=== PATIENT | male | born 1980 | race Caucasian/White ===

== ENCOUNTER 2018-11-13 10:03 | Day surgery (SDC) | payer OTHER ==
[2018-11-13] MEDS: LACTATED RINGER'S 1,000 ML IV (11:24)
[2018-11-13] MEDS ORDERED: MIDAZOLAM 1 MG/ML 2 ML INJ (12:52)
[2018-11-13] MEDS ORDERED: PROPOFOL 20 ML ×2 (12:56→13:47)
[2018-11-13] MEDS ORDERED: LIDOCAINE 2% (SDV) 5 ML INJ (12:56)
[2018-11-13] MEDS ORDERED: ROCURONIUM 50 MG INJ ×2 (12:56→13:52)
[2018-11-13] MEDS ORDERED: SUCCINYLCHOLINE CHLORIDE 100 MG/5 ML SYG IV (12:56)
[2018-11-13] MEDS ORDERED: ROPIVACAINE 0.5 % 30 ML VIAL (12:56)
[2018-11-13] MEDS ORDERED: CEFAZOLIN 1 GM INJ (13:34)
[2018-11-13] MEDS ORDERED: ONDANSETRON 4 MG INJ ×2 (13:34→14:55)
[2018-11-13] MEDS ORDERED: DEXAMETHASONE 4 MG/ML 5 ML INJ (13:34)
[2018-11-13] MEDS ORDERED: FAMOTIDINE 20 MG INJ (13:34)
[2018-11-13] MEDS: BUPIVACAINE 0.5%/EPI (SDV) 10 ML INJ (13:40)
[2018-11-13] MEDS: POLYMYXIN/BACITRACIN 1L IRRIG IRR (13:40)
[2018-11-13] MEDS ORDERED: POLYMYXIN/BACITRACIN 1L IRRIG (14:13)
[2018-11-13] MEDS ORDERED: SUGAMMADEX SODIUM 200 MG/2 ML VIAL IV ×2 (14:17→14:36)
[2018-11-13] MEDS ORDERED: FENTAnyl 50 MCG/ML VIAL (14:55)
[2018-11-13] MEDS ORDERED: MEPERIDINE 25 MG INJ IV (15:00)
[2018-11-13] MEDS ORDERED: FENTAnyl 50 MCG/ML VIAL IV (15:00)
[2018-11-13] MEDS ORDERED: DIPHENHYDRAMINE 50 MG INJ IV (15:00)
[2018-11-13] MEDS ORDERED: OXYCODONE/ACETAMINOPHEN (5/325) TAB PO (15:00)
[2018-11-13] MEDS ORDERED: HYDROmorphONE 1 MG/5 ML IV SYRINGE IV ×3 (15:00)
[2018-11-13] MEDS ORDERED: ONDANSETRON 4 MG INJ IV (15:00)
[2018-11-13] MEDS ORDERED: HYDROCODONE/APAP (5/325) TAB PO ×2 (15:00)
[2018-11-13] MEDS ORDERED: morphine 10 MG INJ IV (15:00)
[2018-11-13] MEDS: FENTAnyl 50 MCG/ML VIAL IV (15:07)
[2018-11-13] MEDS: ONDANSETRON 4 MG INJ IV (15:07)
== END 2018-11-13 17:05 | disposition home or self-care (01) ==
LOC: SDS 10:03
DX: S42.002A Fracture of unspecified part of left clavicle, initial encounter for closed fracture (principal); R94.31 Abnormal electrocardiogram [ECG] [EKG]; V49.9XXA Car occupant (driver) (passenger) injured in unspecified traffic accident, initial encounter; Y93.89 Activity, other specified; Y92.410 Unspecified street and highway as the place of occurrence of the external cause; Y99.8 Other external cause status
CPT/HCPCS: 23515; 71045; 73000; 80053; 81003; 85025; 85610; 85730; 86850; 86900; 86901; 93005